=== PATIENT | female | born 1965 | race Caucasian/White ===

== ENCOUNTER → 2016-08-03 | Outpatient (REF) ==
[~2016-08-03] MED LIST: ALBUTEROL0.09 MG/A1 IH; AMITRIPTYLINE H10 M1 PO; CALCIUM 500500 M2 PO; CIPRO; CLEOCIN; CO-Q 10; COLACE100 MG PO; CYMBALTA 30MG30 MG PO; CYMBALTA 60MG60 MG PO; DIFLUCAN PO; ELAVIL10 MG PO; FISH OIL CONC1000 MG PO; GARLIC SUPPLEM300 MG; GLUCOSAMINE; LAMICTAL 25MG T25 MG PO; LISINOPRIL/HCTZ1 TAB PO; LORTAB 5/500 501 TAB PO; LYRICA50 MG PO; MIRAPEX 1MG PO; MVI; NORCO 325 MG-51 TAB PO; OXYCONTIN10 MG PO; PERCOCET 5/321 UDTAB PO; PLAQUENIL200 MG PO; PREDNISONE 5MG5 MG PO; PRILOSEC 20MG20 MG PO; PRINIVIL10 MG PO; SEROQUEL 2525 MG/TAB PO; SYNTHROID0.05 MG/TA PO; SYNTHROID0.075 MG/T PO; VENTOLIN0.09 MG IH; VITAMIN C500 MG PO; VITAMIN D1000 IU PO; ZYVOX 600MG600 MG PO; [UNRECOGNIZED DRUG - OTHER]
[2016-08-03 16:44] LABS: THYROID STIMULATING HORMONE 2.35 uIU/mL (0.465-4.680)
== END ==
LOC: ZLAB.WCH 16:02
PROVIDERS: Family Medicine
DX: Z01.89 Encounter for other specified special examinations (principal)

== ENCOUNTER → 2016-08-04 | Outpatient (REF) | LOC: ZLAB.WCH 13:55 | DX: Z01.89 Encounter for other specified special examinations (principal) ==

== ENCOUNTER → 2018-01-22 | Outpatient (REF) ==
[2018-01-22 17:03] LABS: THYROID STIMULATING HORMONE 5.9 uIU/mL (0.465-4.680)
== END ==
LOC: ZLAB.WCH 16:10
PROVIDERS: Family Medicine
DX: Z01.89 Encounter for other specified special examinations (principal)

== ENCOUNTER → 2018-03-21 | Outpatient (REF) ==
[2018-03-21 18:56] LABS: THYROID STIMULATING HORMONE 1.52 uIU/mL (0.465-4.680)
== END ==
LOC: ZLAB.WCH 18:06
PROVIDERS: Family Medicine
DX: Z01.89 Encounter for other specified special examinations (principal)

== ENCOUNTER 2019-09-28 21:11 | Emergency (ER) | payer SELFPAY ==
[~2019-09-28] VITALS: Ht 167.6 cm; Wt 79.5 kg
[~2019-09-28 21:11] MED LIST changes: +PLAQUENIL 200M200 MG PO; -PLAQUENIL200 MG PO
[2019-09-28 22:32] LABS: HEMATOCRIT 44.1 % (37.0-47.0); HEMOGLOBIN 14.7 g/dl (12.5-16.0); MEAN CELL VOLUME 94 fl (80.0-100.0); MEAN CORPUSCULAR HEMOGLOBIN 31 pg (27.0-31.0); MEAN CORPUSCULAR HGB CONC 33 g/dl (33.0-37.0); PLATELET COUNT 279 K/mm3 (130-400); RED BLOOD COUNT 4.68 M/mm3 (4.10-5.30); REDCELL DISTRIBUTION WIDTH-CV 13.5 % (11.5-14.5)
[2019-09-28 22:36] VITALS: TEMP 99.1
[2019-09-28 22:46] LABS: ALANINE AMINOTRANSFERASE 23 U/L (4-34); ALKALINE PHOSPHATASE 84 U/L (50-136); ANION GAP 5 mmol/L (7-16); AST,SGOT 25 U/L (15-37); BILIRUBIN,TOTAL 0.3 mg/dL (0.0-1.0); BLOOD UREA NITROGEN 5 mg/dL (7-17); CALCIUM 9.4 mg/dL (8.4-10.2); CARBON DIOXIDE 30 mmol/L (22-30); CHLORIDE 105 mmol/L (98-107); CREATININE, serum 0.76 (0.52-1.25); GLUCOSE 118 mg/dL (74-106); POTASSIUM 3.6 mmol/L (3.4-5.0); SODIUM 140 mmol/L (137-145); TOTAL PROTEIN 6.9 gm/dL (6.4-8.2)
[2019-09-28 22:49] LABS: C-REACTIVE PROTEIN < 0.5 mg/dL (0.0-0.9)
[2019-09-28 22:55] LABS: TROPONIN-I < 0.012 ng/mL (0.000-0.035)
[2019-09-28 22:58] LABS: BASOPHIL 1 % (0-2); EOSINOPHIL 2 % (0-4); LYMPHOCYTE 46 % (20.0-51.0); NEUTROPHILS 43 % (42.0-75.2); PLATELET ESTIMATE NORMAL (NORMAL)
[2019-09-29 00:35] VITALS: BP 130/62; PULSE 92
[2019-10-01 15:13] VITALS: O2SAT 99
[2019-10-01 15:15] VITALS: O2SAT 98
[2019-10-01 15:28] VITALS: O2SAT 99
[2019-10-01 15:30] VITALS: O2SAT 98
== END 2019-09-29 00:30 | disposition home or self-care (01) ==
LOC: COL.ER 21:11
PROVIDERS: Nurse Practitioner
DX: R06.02 Shortness of breath (principal); R51 Headache; F32.9 Major depressive disorder, single episode, unspecified; F41.9 Anxiety disorder, unspecified; F17.210 Nicotine dependence, cigarettes, uncomplicated; Z86.73 Personal history of transient ischemic attack (TIA), and cerebral infarction without residual deficits
CPT/HCPCS: J0595; J1200; J2765; J7030

== ENCOUNTER 2019-10-01 13:04 | Inpatient (IN) | payer BC ==
[2019-10-01] VITALS (231 sets, daily range): BP systolic 103–144; BP diastolic 64–94; PULSE 67–94; TEMP 97.6–98.4; O2SAT 91–100
[~2019-10-01] VITALS: Ht 162.6 cm; Wt 86.2 kg
--- NOTE | 2019-10-01 15:00 | NUR ---
Admitted to ICU 1 per POV from home. Assisted to room by Dayo ASTUDILLO and Suresh Gomez RN. Monitors applied and oriented to unit.
[2019-10-01 17:17] LABS: BASO % 0.2 % (0.0-2.0); EOS # 0.2 (0.0-0.7); EOS % 2.2 % (0-4.0); GRAN # 4.8 (1.4-6.5); GRAN % 59.3 % (42.2-75.2); HEMATOCRIT 43.4 % (37.0-47.0); HEMOGLOBIN 14.4 g/dl (12.5-16.0); LYMPH # 2.4 (1.2-3.4); LYMPH % 29.6 % (20.0-51.0); MEAN CELL VOLUME 93 fl (80.0-100.0); MEAN CORPUSCULAR HEMOGLOBIN 31 pg (27.0-31.0); MEAN CORPUSCULAR HGB CONC 33 g/dl (33.0-37.0); MONO # 0.7 (0.1-0.6); MONO % 8.2 % (1.7-9.3); PLATELET COUNT 271 K/mm3 (130-400); RED BLOOD COUNT 4.66 M/mm3 (4.10-5.30); REDCELL DISTRIBUTION WIDTH-CV 13.2 % (11.5-14.5)
[2019-10-01] MEDS ORDERED: FLOVENT DI100 MCG/Ac IH (17:24)
[2019-10-01 17:25] LABS: INR 0.9 (0.8-3.0); PROTHROMBIN TIME 10.2 SECONDS (9.7-12.8)
[2019-10-01] MEDS ORDERED: ALBUTEROL0.83 MG/ML IH (17:25)
[2019-10-01] MEDS ORDERED: LIPITOR 80MG80 MG PO (17:26)
[2019-10-01] MEDS ORDERED: PULMICORT R1 MG/2 ML IH (17:27)
[2019-10-01 17:30] LABS: ALANINE AMINOTRANSFERASE 23 U/L (4-34); ALBUMIN 4.1 gm/dL (3.5-5.0); ALKALINE PHOSPHATASE 100 U/L (50-136); ANION GAP 7 mmol/L (7-16); AST,SGOT 34 U/L (15-37); BILIRUBIN,TOTAL 0.5 mg/dL (0.0-1.0); BLOOD UREA NITROGEN 5 mg/dL (7-17); CALCIUM 9.2 mg/dL (8.4-10.2); CARBON DIOXIDE 27 mmol/L (22-30); CHLORIDE 108 mmol/L (98-107); CREATININE, serum 0.69 (0.52-1.25); GLUCOSE 76 mg/dL (74-106); LACTATE DEHYDROGENASE 587 U/L (313-618); POTASSIUM 3.9 mmol/L (3.4-5.0); SODIUM 141 mmol/L (137-145); TOTAL PROTEIN 7.1 gm/dL (6.4-8.2)
[2019-10-01 17:32] LABS: C-REACTIVE PROTEIN < 0.5 mg/dL (0.0-0.9)
[2019-10-01] MEDS ORDERED: CALCIUM 600-D 61 TAB PO (17:42)
[2019-10-01] MEDS ORDERED: PLAVIX 75MG TAB75 MG PO (17:42)
[2019-10-01] MEDS ORDERED: SYNTHROID0.125 MG/T PO (17:43)
[2019-10-01] MEDS ORDERED: PRINIVIL5 MG PO (17:43)
[2019-10-01] MEDS ORDERED: PRILOSEC 20MG20 MG PO (17:44)
[2019-10-01] MEDS ORDERED: AIMOVIG AU70 MG/1 M1 SQ (17:45)
[2019-10-01] MEDS ORDERED: NORCO 325 MG-7.1 TAB PO (17:46)
[2019-10-01] MEDS ORDERED: HUMIRA(CF)40 MG/0.4 SQ (17:48)
[2019-10-01] MEDS ORDERED: PROBIOTIC BLEN1 EACH PO (17:48)
[2019-10-01] MEDS ORDERED: NEURONTIN300 MG/CAP PO (17:54)
[2019-10-01] MEDS ORDERED: NEURONTIN400 MG/CAP PO (17:55)
[2019-10-01] MEDS ORDERED: ROBAXIN 50500 MG/TAB PO (17:56)
--- NOTE | 2019-10-01 19:20 | NUR ---
RECEIVED REPORT FROM WILDA POOL. PT SITTING UP IN BED PLAYING ON PHONE ON RA. VSS. CALL LIGHT WITHIN REACH.
--- NOTE | 2019-10-01 19:20 | NUR ---
Report given to Keyanna ASTUDILLO
[2019-10-02] VITALS (349 sets, daily range): BP systolic 122–135; BP diastolic 93–95; PULSE 57–70; TEMP 97.8–98.2; O2SAT 87–100
--- NOTE | 2019-10-02 03:00 | NUR ---
PT COTNINUES TO C/O JULIEN THAT IS POUNDING SO HARSHLY THAT IT IS MAKING HER NAUSEOUS. OFFERED PT A COOL WET WASH CLOTH TO LAY OVER EYES, REFUSED. SEE MAR FOR MEDICATION ADMINISTRATION.
[2019-10-02 06:58] LABS: HEMATOCRIT 40.5 % (37.0-47.0); HEMOGLOBIN 13.3 g/dl (12.5-16.0); MEAN CELL VOLUME 95 fl (80.0-100.0); MEAN CORPUSCULAR HEMOGLOBIN 31 pg (27.0-31.0); MEAN CORPUSCULAR HGB CONC 33 g/dl (33.0-37.0); MEAN PLATELET VOLUME 9.1 fl (7.4-10.4); PLATELET COUNT 234 K/mm3 (130-400); RED BLOOD COUNT 4.25 M/mm3 (4.10-5.30); REDCELL DISTRIBUTION WIDTH-CV 13.3 % (11.5-14.5)
[2019-10-02 07:01] LABS: ALBUMIN 3.6 gm/dL (3.5-5.0); BILIRUBIN,TOTAL 0.4 mg/dL (0.0-1.0); CALCIUM 8.8 mg/dL (8.4-10.2); CREATININE, serum 0.76 (0.52-1.25); TOTAL PROTEIN 6.3 gm/dL (6.4-8.2)
[2019-10-02 07:39] LABS: BAND 1 % (0-10); LYMPHOCYTE 55 % (20.0-51.0); NEUTROPHILS 31 % (42.0-75.2); PLATELET ESTIMATE NORMAL (NORMAL)
[2019-10-02] MEDS ORDERED: ALBUTEROL0.83 MG/ML IH (08:51)
[2019-10-02] MEDS ORDERED: PULMICORT R1 MG/2 ML IH (08:53)
== END 2019-10-02 10:08 | disposition home or self-care (01) | DRG 179 ==
LOC: ICU 13:04
PROVIDERS: ADMIT Internal Medicine
DX: U07.1 COVID-19 (principal); M32.9 Systemic lupus erythematosus, unspecified; G43.909 Migraine, unspecified, not intractable, without status migrainosus; M54.30 Sciatica, unspecified side; I10 Essential (primary) hypertension; K21.9 Gastro-esophageal reflux disease without esophagitis; E03.9 Hypothyroidism, unspecified; K44.9 Diaphragmatic hernia without obstruction or gangrene; E78.5 Hyperlipidemia, unspecified; Z79.52 Long term (current) use of systemic steroids; Z79.891 Long term (current) use of opiate analgesic; Z87.891 Personal history of nicotine dependence; Z90.710 Acquired absence of both cervix and uterus; Z86.73 Personal history of transient ischemic attack (TIA), and cerebral infarction without residual deficits; Z88.0 Allergy status to penicillin
CPT/HCPCS: 99223-AI; 99239; J1170; J1650